=== PATIENT | female | born 1980 | race Caucasian/White ===

== ENCOUNTER 2018-11-27 13:39 | Inpatient (IN) | payer OTHER ==
[~2018-11-27] VITALS: Ht 162.6 cm; Wt 92.0 kg
[2018-11-28] MEDS ORDERED: PRENATABS RX T1 EACH PO (02:18)
--- NOTE | 2018-11-28 10:59 | PR ---
[facility] [address] [place], [place] [address] Signed Progress Notes IP Datetime Report Generated by MARIA INES: 11/28/2018 10:59 PROGRESS NOTES: [id number] Impression: Slow Progression of Labor Procedures: Artificial ROM; Sterile Vag Exam Plan: Continue present management Informed Consent Obtain: Vaginal Delivery; Induction of Labor; Risks, Benefits and Alternatives Discussed VITAL SIGNS: [id number] Vital Signs: Reviewed; Within Normal Limits EXAM: [id number] Dilatation: 2.5 Effacement: 50 Station: -3 Uterine Contractions: q 2 to 3 min MEMBRANES: [id number] Membrane Status: Intact ROM Note: AROM attempted with no fluid seen Comments: Getting more uncomfortable and trin[place] well with some change in her cervix. AROM attempted without success. Will hold Cytotec and continue observation for now. Fetus A: [id number] FHR Baseline: 130 Variability: Moderate 6-25bpm Accelerations: 15X15 Decelerations: None FHR Category: Category I Presentation: Vertex Comments on Fetus A: No evidence of metabolic acidosis Fetus B: [id number] Signing Physician: Marivel Weiner MD Copies: ~ *Electronically Signed* 11/28/18 1059 MARIVEL WEINER MD PATIENT NAME: IBIS WALLACE PROGRESS NOTE DATE OF : 84 PHYSICIAN: MARIVEL WEINER MD RPT #: [id number] REPORT IS CONFIDENTIAL AND NOT TO BE RELEASED WITHOUT AUTHORIZATION
--- NOTE | 2018-11-28 12:47 | PR ---
[facility] [address] [facility] [place], [place] [address] Signed Progress Notes IP Datetime Report Generated by CPJuan Miguel: 11/28/2018 12:46 PROGRESS NOTES: [id number] Impression: Slow Progression of Labor Procedures: Artificial ROM; Sterile Vag Exam Plan: Continue present management Informed Consent Obtain: Vaginal Delivery; Induction of Labor; Risks, Benefits and Alternatives Discussed VITAL SIGNS: [id number] Vital Signs: Reviewed; Within Normal Limits EXAM: [id number] Dilatation: 3.0 Effacement: 50 Station: -3 Uterine Contractions: q 3 to 4 min MEMBRANES: [id number] Membrane Status: Intact ROM Note: AROM attempted but no fluid seen Comments: Comfortable after epidural. Slow progress. AROM attempted but not successful. Will continue. Fetus A: [id number] FHR Baseline: 130 Variability: Moderate 6-25bpm Accelerations: 15X15 Decelerations: None FHR Category: Category I Presentation: Vertex Comments on Fetus A: No evidence of metabolic acidosis Fetus B: [id number] Signing Physician: Marivel Weiner MD Copies: ~ *Electronically Signed* 11/28/18 1246 MARIVEL WEINER MD PATIENT NAME: IBIS WALLACE PROGRESS NOTE DATE OF : 84 PHYSICIAN: MARIVEL WEINER MD RPT #: [id number] REPORT IS CONFIDENTIAL AND NOT TO BE RELEASED WITHOUT AUTHORIZATION
--- NOTE | 2018-11-28 15:11 | PR ---
[facility] [address] [place], [place] [address] Signed Progress Notes IP Datetime Report Generated by CPN: 11/28/2018 15:11 PROGRESS NOTES: [id number] Impression: Reassuring heart rate; Slow Progression of Labor Procedures: Artificial ROM; Scalp Electrode Plan: Continue present management Informed Consent Obtain: Vaginal Delivery; Induction of Labor; Risks, Benefits and Alternatives Discussed VITAL SIGNS: [id number] Vital Signs: Reviewed; Within Normal Limits EXAM: [id number] Dilatation: 4.0 Effacement: 50 Station: -3 Uterine Contractions: q 2 to 3 min MEMBRANES: [id number] Membrane Status: Intact ROM Note: AROM attempted again with hook w/o success. FSE placed and small amount of clear fluid seen. Comments: Comfortable with epidural. Slow progress. Will continue now that AROM has occurred. Fetus A: [id number] FHR Baseline: 130 Variability: Moderate 6-25bpm Accelerations: 15X15 Decelerations: None FHR Category: Category I Presentation: Vertex Comments on Fetus A: No evidence of metabolic acidosis. Fetus B: [id number] Signing Physician: Marivel Weiner MD Copies: ~ *Electronically Signed* 11/28/18 1511 MARIVEL WEINER MD PATIENT NAME: IBIS WALLACE PROGRESS NOTE DATE OF : 84 PHYSICIAN: MARIVEL WEINER MD RPT #: [id number] REPORT IS CONFIDENTIAL AND NOT TO BE RELEASED WITHOUT AUTHORIZATION
--- NOTE | 2018-11-28 17:17 | PR ---
[facility] [address] [place], [place] [address] Signed Progress Notes IP Datetime Report Generated by CPN: 11/28/2018 17:17 PROGRESS NOTES: [id number] Impression: Slow Progression of Labor Procedures: Artificial ROM; Scalp Electrode Plan: Augmentation Informed Consent Obtain: Vaginal Delivery; Induction of Labor; Risks, Benefits and Alternatives Discussed VITAL SIGNS: [id number] Vital Signs: Reviewed; Within Normal Limits EXAM: [id number] Dilatation: 4.0 Effacement: 50 Station: -3 Uterine Contractions: q 2 to 4 min MEMBRANES: [id number] Membrane Status: Intact ROM Note: AROM attempted again with hook w/o success. FSE placed and small amount of clear fluid seen. Comments: Very slow progress. Contractions have spaced out. Will begin pit augment. Fetus A: [id number] FHR Baseline: 130 Variability: Moderate 6-25bpm Accelerations: 15X15 Decelerations: None FHR Category: Category I Presentation: Vertex Comments on Fetus A: No evidence of metabolic acidosis Fetus B: [id number] Signing Physician: Marivel Weiner MD Copies: ~ *Electronically Signed* 11/28/18 1717 MARIVEL WEINER MD PATIENT NAME: IBIS WALLACE PROGRESS NOTE DATE OF : 84 PHYSICIAN: MARIVEL WEINER MD RPT #: [id number] REPORT IS CONFIDENTIAL AND NOT TO BE RELEASED WITHOUT AUTHORIZATION
--- NOTE | 2018-11-29 12:02 | PR ---
[facility] [address] [facility] [place], [place] [address] Signed PP Progress Notes Datetime Report Generated by MARIA INES: 11/29/2018 12:02 SUBJECTIVE: [id number] Pain: Within normal limits Nausea/Vomiting: Denies Vital Signs: [id number] Vital Signs: Reviewed; Within Normal Limits EXAM: [id number] Cardiovascular: Not Done Respiratory: Not Done Abdomen/Uterus: Abnormal Lochia: Normal Vulva/Perineum: Not Done Breasts: Not Done CVA Tenderness: Not Done Extremities: Normal Incision: Not Applicable Progress: Normal Exam Comments: Fundus firm, NT @ U. H/H 10.7/31.7, WBC 12.1, plat 217k IMPRESSION/PLAN/PROCEDURES: [id number] Impression: Normal progression Plan: Continue present management Procedures: None Progress Notes: Doing well. Will continue present regimen with probable discharge tomorrow. Signing Physician: Marivel Weiner MD Copies: ~ *Electronically Signed* 11/29/18 1202 MARIVEL WEINER MD PATIENT NAME: IBIS WALLACE PROGRESS NOTE DATE OF : 84 PHYSICIAN: MARIVEL WEINER MD RPT #: [id number] REPORT IS CONFIDENTIAL AND NOT TO BE RELEASED WITHOUT AUTHORIZATION
--- NOTE | 2018-11-30 08:19 | PR ---
[facility] [address] [facility] [place], [place] [address] Signed PP Progress Notes Datetime Report Generated by MARIA INES: 11/30/2018 08:19 SUBJECTIVE: [id number] Pain: Within normal limits Nausea/Vomiting: Denies Vital Signs: J1206647 Vital Signs: Reviewed; Within Normal Limits EXAM: [id number] Cardiovascular: Not Done Respiratory: Not Done Abdomen/Uterus: Abnormal Lochia: Normal Vulva/Perineum: Not Done Breasts: Not Done CVA Tenderness: Not Done Extremities: Normal Incision: Not Applicable Progress: Normal Exam Comments: Fundus firm, NT @ U-1. IMPRESSION/PLAN/PROCEDURES: [id number] Impression: Normal progression Plan: Discharge Procedures: None Progress Notes: Doing well. She is ready for D/C. Signing Physician: Marivel Weiner MD Copies: ~ *Electronically Signed* 11/30/188[address] MARIVEL WEINER MD PATIENT NAME: IBIS WALLACE PROGRESS NOTE DATE OF : [birth year] PHYSICIAN: MARIVEL WEINER MD RPT #: [id number] REPORT IS CONFIDENTIAL AND NOT TO BE RELEASED WITHOUT AUTHORIZATION
== END 2018-11-30 13:55 | disposition home or self-care (01) | DRG 807 ==
LOC: FBC 11-28 00:17
PROVIDERS: ADMIT Obstetrics & Gynecology
PROC: 10E0XZZ Delivery of Products of Conception, External Approach (ICD-10-PCS; principal; 2018-11-28)
PROC: 0HQ9XZZ Repair Perineum Skin, External Approach (ICD-10-PCS; 2018-11-28)
PROC: 10907ZC Drainage of Amniotic Fluid, Therapeutic from Products of Conception, Via Natural or Artificial Opening (ICD-10-PCS; 2018-11-28)
PROC: 3E0P7VZ Introduction of Hormone into Female Reproductive, Via Natural or Artificial Opening (ICD-10-PCS; 2018-11-28)
PROC: 00HU33Z Insertion of Infusion Device into Spinal Canal, Percutaneous Approach (ICD-10-PCS; 2018-11-28)
PROC: 3E0R3BZ Introduction of Anesthetic Agent into Spinal Canal, Percutaneous Approach (ICD-10-PCS; 2018-11-28)
DX: O48.0 Post-term pregnancy (principal); Z37.0 Single live birth; Z3A.40 40 weeks gestation of pregnancy; O70.1 Second degree perineal laceration during delivery; O99.334 Smoking (tobacco) complicating childbirth; F17.210 Nicotine dependence, cigarettes, uncomplicated; O43.113 Circumvallate placenta, third trimester; O99.214 Obesity complicating childbirth; E66.9 Obesity, unspecified; O76 Abnormality in fetal heart rate and rhythm complicating labor and delivery; O99.02 Anemia complicating childbirth; D64.9 Anemia, unspecified
CPT/HCPCS: 36415; 85027; J2590; J7120

== ENCOUNTER 2022-12-25 00:57 | Inpatient (IN) | payer OTHER ==
[~2022-12-25] VITALS: Ht 162.6 cm; Wt 113.9 kg
--- NOTE | ~2022-12-25 | OR ---
[facility] [address] [place], [place] [address] Draft DATE OF OPERATION: 12/25/2022 SURGEON: Moses Rendon DO PREOPERATIVE DIAGNOSES: 1. Intrauterine at 37 and 3 weeks. 2. Breech presentation. 3. Premature rupture of membranes. 4. Advanced maternal age. 5. Polyhydramnios. 6. Obesity. POSTOPERATIVE DIAGNOSES: 1. Intrauterine at 37 and 3 weeks. 2. Transverse lie back down. 3. Polyhydramnios. 4. Premature rupture of membranes. 5. Obesity. 6. Advanced maternal age. PROCEDURES PERFORMED: Primary delivery with J extension of hysterotomy. AFTERNOON BABYSITTER: Ariadne Agrawal DO. ANESTHESIA: 1. Labor epidural bolused. 2. Postoperative TAP block. ESTIMATED BLOOD LOSS: 700 mL. FINDINGS: Delivery of viable male 6 pounds 2 ounces with Apgars of 4 and 9 with no nuchal cord. Complex presentation with transverse lie back down requiring J extension of hysterotomy which was closed in three layer closure. Abnormally small appearing placenta. Arterial pH 7.19, arterial pCO2 of 63.3, arterial bicarbonate 24.2, arterial base excess 5.7, venous pH 7.24, pCO2 of 61.3, bicarb 26, base excess -3.2. PATIENT NAME: IBIS WALLACE OPERATIVE REPORT DATE OF : 84 REPORT #: [id number] PHYSICIAN: MOSES RENDOND) DO PCP: PILO MAZA PA-C REPORT IS CONFIDENTIAL AND NOT TO BE RELEASED WITHOUT AUTHORIZATION [facility] [address] [place], [place] [address] Draft COMPLICATIONS: Difficult extraction requiring J extension. INDICATIONS: Ms. Wallace is a pleasant 42-year-old G6, P4, with IUP at 37 and 3 weeks gestation, presented to Labor and Delivery complaining of spontaneous rupture of membranes. was complicated by polyhydramnios, advanced maternal age and obesity. She was GBS negative. She was checked by nursing staff who felt that fetus was in cephalic presentation. When I performed cervix check, I felt no obvious presenting part. Bedside ultrasound was performed that demonstrated andi breech presentation. Decision was made to proceed with primary low transverse delivery. Risks, benefits, and alternatives were discussed in detail with the patient. The patient understands and wishes to proceed with the procedure. TECHNIQUE: The patient was taken to the operating room where previously received labor epidural was bolused and found to be adequate. Amaya catheter was inserted. The patient received Ancef 3 g, azithromycin 500 mg and had an abdominal and vaginal prep. No heparin was indicated. A Amaya catheter was inserted and the patient was prepped and draped in the supine position with a bump under the right hip. Once epidural was found to be adequate, a Pfannenstiel skin incision was made approximately 2 cm above the pubic symphysis with a surgical scalpel. This was carried down to the fascia which was nicked in the midline. Fascial incision was extended bilaterally using curved Menendez scissors. The fascia was grasped with Susan's, elevated, and the underlying rectus dissected off bluntly and sharply. The rectus was divided in the midline with blunt dissection and the peritoneum was entered bluntly. Peritoneal incision was extended bilaterally using blunt dissection. The lower uterine segment was identified and Farzad self retractor was placed. Hysterotomy was made in the lower uterine segment. Hysterotomy was extended bilaterally using blunt dissection. The lower uterine segment was noted to be quite thick and upon extension of hysterotomy, no presenting part was noted. The surgeon's hand was then placed high into the uterine cavity and a transverse lie back down was then identified. The left arm spontaneous delivered. This was reinserted through the hysterotomy and attempts at internal cephalic version was performed. There is some contraction of the lower uterine segment rendering this ineffective. Decision was then made to perform J extension of the hysterotomy, which was performed using band-aid scissors of the left side of the uterine corpus. At this point, internal cephalic version was able to be performed successfully and was delivered with the assistance of fundal pressure. This was a notably difficult extraction and total extraction time was approximately 3 minutes. The was delivered and the cord was doubly clamped and cut, handed to the waiting pediatric team for further care. Cord blood was obtained for blood gases, which were normal as above. The placenta was then expressed intact with a centrally inserted three-vessel cord. However, the placenta was PATIENT NAME: IBIS WALLACE OPERATIVE REPORT DATE OF : 84 REPORT #: [id number] PHYSICIAN: MOSES RENDON (GUSTAVO) DO PCP: PILO MAZA PA-C REPORT IS CONFIDENTIAL AND NOT TO BE RELEASED WITHOUT AUTHORIZATION [facility] [address] [place] [address] Draft noted to be abnormally small and was sent to pathology for further evaluation. The uterine cavity was cleared of any remaining products of conception or clot. The J extension portion of the hysterotomy was then repaired using 0 Monocryl in three layers. Pitocin was administered per protocol and 1 g of tranexamic acid was administered and bleeding was noted to be significantly reduced. The low transverse hysterotomy was then repaired with 0 Monocryl in a running locked manner. Imbricating layer of 0 Monocryl was applied. Small amount of oozing was noted at the left corner and this was made hemostatic with a edwteg-hg-ejvtk of 0 Monocryl. Lolita was applied to the hysterotomy to ensure hemostasis. Normal tubes and ovaries bilaterally. The peritoneum was then reapproximated using 2-0 Vicryl in a running nonlocked manner. Rectus was then plicated in the midline using several sutures of 0 Vicryl after ensuring hemostasis of the rectus. The fascia was then reapproximated using 0 Vicryl in a running nonlocked manner. Subcu was made hemostatic and was irrigated and then was closed with 3-0 Vicryl. Skin was reapproximated using surgical jenny. The uterus was Crede'd for scant amount of blood. The patient remained in the operative theater for postoperative TAP blocks. Sponge, needle, and instrument count was correct x2 at the end of the procedure. Dr. Agrawal was present and participated in all portions of procedure. DO CON Santacrzu/ALEXANDRA /[id number] Copies: ~ PATIENT NAME: IBIS WALLACE OPERATIVE REPORT DATE OF : 84 REPORT #: [id number] PHYSICIAN: MOSES RENDON (GUSTAVO) PCP: PILO MAZA PA-C REPORT IS CONFIDENTIAL AND NOT TO BE RELEASED WITHOUT AUTHORIZATION
[~2022-12-25 00:57] MED LIST: PRENATABS RX T1 EACH PO
[2022-12-25 01:41] VITALS: BP 125/65
--- NOTE | 2022-12-25 04:26 | PR ---
[facility] [address] [place], [place] [address] Signed Progress Notes IP Datetime Report Generated by MARIA INES: 12/25/2022 04:26 PROGRESS NOTES: [id number] Impression: Reassuring Heart Rate Other Impressions: Breech presentation Procedures: Sterile Vag Exam Plan: Deliver- Section Informed Consent Obtain: Section Delivery VITAL SIGNS: [id number] Vital Signs: Reviewed; Within Normal Limits EXAM: [id number] Dilatation: 2.0 Effacement: 60 Station: -3 Contractions: Irritable MEMBRANES: J1794791 Amniotic Fluid Color: Clear Comments: Upon completion of another procedure, I noted deceleration and evaluated patient. Discussed FSE and SVE was performed w/ Kelli Fernandez RN health care marketing specialist. No presenting part palpated. No prolapsed umbilical cord. Bedside US was performed that demonstrated breech presentation w/ head on maternal LEFT side. Discussed contraindications to breech vaginal delivery or attempted internal / external version. Recommended primary LTCS. Pt understands and agrees. Reviewed risks/benefits and alternatives. Consents signed. OR / anesthesia / judicial administrative assistant notified and en route. FHT reassuring. Will continue to monitor closely. Ancef 3g FETUS A: [id number] FHR Baseline: 125 Variability: Moderate 6-25bpm Accelerations: 15X15 Decelerations: None FHR Category: Category I Presentation: Vertex Comments on Fetus A: No evidence of metabolic acidosis FETUS B: [id number] Signing Physician: Moses Rendon DO *Electronically Signed* 12/25/22 0426 MOSES RENDON (GUSTAVO) DO PATIENT NAME: IBIS WALLACE PROGRESS NOTE DATE OF : 84 PHYSICIAN: MOSES RENDON (JD) DO RPT #: [id number] REPORT IS CONFIDENTIAL AND NOT TO BE RELEASED WITHOUT AUTHORIZATION
--- NOTE | 2022-12-25 07:00 | NUR ---
12/25/22 0700 Sujey Garcia 0662 PT ARRIVED TO ROOM WITH PT MOTHER AT BEDSIDE. PT DENIES CONCERNS. PLAN OF CARE DISCUSSED. IV INFUSING IN LEFT WRIST SITE WNL. 0650 BABY TO CHEST WITH FBC RN.
[2022-12-25 07:08] VITALS: BP 116/64
--- NOTE | 2022-12-27 11:17 | PR ---
[facility] [address] [facility] [place], [place] [address] Signed PP Progress Notes Datetime Report Generated by CPN: 12/27/2022 11:17 SUBJECTIVE: [id number] Pain: Within Normal Limits Nausea/Vomiting: Denies Flatus: Yes Bowel Movement: No Vital Signs: [id number] Vital Signs: Reviewed; Within Normal Limits EXAM: Met Cardiovascular: Normal Respiratory: Normal Abdomen/Uterus: Normal Lochia: Normal Vulva/Perineum: Not Done Breasts: Not Done CVA Tenderness: Normal Extremities: Normal Incision: Normal Progress: Normal Exam Comments: Fundus firm U-2 nontender. Incision healing well w/ some edema IMPRESSION/PLAN/PROCEDURES: [id number] Impression: Normal Progression Plan: Continue Present Management Other Plans: Abdominal binder Progress Notes: Pt seen and examined. Doing well. Ambulating, voiding, and tolerating full diet. Pain and lochia minimal. well. No concerns. Anticipate d/c home tomorrow. Signing Physician: Moses Rendon DO Copies: ~ *Electronically Signed* 12/27/22 Sandra MOSES RENDON (GUSTAVO) DO PATIENT NAME: IBIS WALLACE PROGRESS NOTE DATE OF : 84 PHYSICIAN: MOSES RENDON (GUSTAVO) DO RPT #: [id number] REPORT IS CONFIDENTIAL AND NOT TO BE RELEASED WITHOUT AUTHORIZATION
--- NOTE | 2022-12-28 08:49 | PR ---
[facility] [address] [facility] [place], [place] [address] Signed PP Progress Notes Datetime Report Generated by CPJuan Miguel: 12/28/2022 08:49 SUBJECTIVE: [id number] Pain: Within Normal Limits Nausea/Vomiting: Denies Flatus: Yes Bowel Movement: No Vital Signs: [id number] Vital Signs: Reviewed; Within Normal Limits EXAM: Met Cardiovascular: Not Done Respiratory: Not Done Abdomen/Uterus: Abnormal Lochia: Normal Vulva/Perineum: Not Done Breasts: Not Done CVA Tenderness: Not Done Extremities: Normal Incision: Normal Progress: Normal Exam Comments: Abdomen with active BS. Fundus firm, NT @ U-1. IMPRESSION/PLAN/PROCEDURES: [id number] Impression: Normal Progression Plan: Discharge Other Plans: Abdominal binder Procedures: None Progress Notes: Doing well. She is ready for D/C. Signing Physician: Marivel Weiner MD Copies: ~ *Electronically Signed* 12/28/22 0849 MARIVEL WEINER MD PATIENT NAME: IBIS WALLACE PROGRESS NOTE DATE OF : 84 PHYSICIAN: MARIVEL WEINER MD RPT #: [id number] REPORT IS CONFIDENTIAL AND NOT TO BE RELEASED WITHOUT AUTHORIZATION
--- NOTE | 2022-12-30 17:12 | PATH ---
[facility] [address] [place], [place] [address] Signed SPECIMEN(S): A PLACENTA SPECIMEN SOURCE: A. PLACENTA CLINICAL HISTORY: Mother's age: 42. score: 4, 9. Specific issues of concern: Breech baby, primary , small placenta (less than 350 g), difficult extraction via primary LTCS. FINAL PATHOLOGIC DIAGNOSIS: Placenta, third trimester: - Mature placenta, 288 grams - Negative for morphologic features of chorioamnionitis or villitis. - Three blood vessel umbilical cord, negative for inflammation. - Negative for significant infarcts or hemorrhage. NA:em:C2NR MICROSCOPIC EXAMINATION: Histologic sections of all submitted blocks are examined by light microscopy. These findings, together with the gross examination, support the pathologic diagnosis. GROSS DESCRIPTION: The specimen, labeled and designated "Wallace, D," and designated on the requisition "placenta," is received in formalin and consists of a verma discoid placenta with the following parameters: Umbilical cord: Insertion paramarginal, measurement 8.4 x 1.7 cm; trivascular. Cord coiling index (per 10 cm): Cannot be grossly assessed. Lesions: Placental membranes attach to the umbilical cord for a distance of 6.5 cm from the umbilical cord insertion site. Membranes: Insertion site: Marginal, pink-translucent. Fragmented. Other: Not grossly identified. Chorionic Plate: Normal radiating vascular pattern, blue-purple and shiny. Lesions: Not grossly identified. Other: Not grossly identified. Maternal Surface: Focally fused, fragmented. Lesions: Not grossly identified. Measurement: 14.0 x 13.6 x 3.1 cm; 288 g. Cut Surface: Maroon and spongy. Lesions: Two areas of white-bueno consolidation adjacent to the maternal surface measuring 1.0 and 0.8 cm in greatest dimension. Also present is one area of red PATIENT NAME: IBIS WALLACE PATHOLOGY DATE OF : 84 REPORT #: [id number] PHYSICIAN: [facility] PCP: PILO MAZA PA-C REPORT IS CONFIDENTIAL AND NOT TO BE RELEASED WITHOUT AUTHORIZATION [facility] [address] [place], [place] [address] Signed laminated consolidation that is 1.5 cm in greatest dimension. These areas involve less than 10% of the placental parenchyma. Basal plate fibrin 0.1 cm in thickness. Other Findings: Not grossly identified. Cassette Summary: (A1) Membranes and umbilical cord (A2) Areas of consolidation (A3) Area of consolidation and placenta parenchyma (A4) Placenta parenchyma FB (under the direct supervision of a pathologist) The Gross Description was prepared using a voice recognition system. The report was reviewed for accuracy; however, sound-alike word errors, addition and/or deletions may occur. If there is any question about this report, please contact Client Services. PERFORMING LABORATORY: The technical component was performed by [facility], [address] [place] [id number] (CLIA# [id number]). Professional interpretation was performed by [facility], [address] [place] [address] (CLIA# [id number]). Diagnostician: Gordon Donis MD Pathologist Electronically Signed 12/30/2022 Copies: ~ PATIENT NAME: IBIS WALLACE PATHOLOGY DATE OF : [birth year] REPORT #: [id number] PHYSICIAN: [facility] PCP: PILO MAZA PA-C REPORT IS CONFIDENTIAL AND NOT TO BE RELEASED WITHOUT AUTHORIZATION
== END 2022-12-28 13:30 | disposition home or self-care (01) | DRG 788 ==
LOC: FBCO 00:57 → FBC 00:58
PROVIDERS: ADMIT Obstetrics & Gynecology; ATTEND Obstetrics & Gynecology
PROC: 10D00Z1 Extraction of Products of Conception, Low, Open Approach (ICD-10-PCS; principal; 2022-12-25 04:50)
DX: O32.1XX0 Maternal care for breech presentation, not applicable or unspecified (principal); O40.3XX0 Polyhydramnios, third trimester, not applicable or unspecified; O32.2XX0 Maternal care for transverse and oblique lie, not applicable or unspecified; O99.214 Obesity complicating childbirth; O42.02 Full-term premature rupture of membranes, onset of labor within 24 hours of rupture; O36.5130 Maternal care for known or suspected placental insufficiency, third trimester, not applicable or unspecified; Z37.0 Single live birth; Z3A.37 37 weeks gestation of pregnancy; Z87.891 Personal history of nicotine dependence; Z67.10 Type A blood, Rh positive; Z98.890 Other specified postprocedural states
CPT/HCPCS: 36415; 76942; 80053; 82803; 85025; 85027; 86850; 86900; 86901; A9270; J0456; J0690; J1650; J1885; J2274; J2300; J2405; J2590; J7121